=== PATIENT | female | born 2000 | race Caucasian/White ===

== ENCOUNTER → 2022-11-04 | Outpatient (CLI) | payer OTHER, SELFPAY ==
[2022-11-04 11:39] LABS: Hemoglobin A1c 5.2 % (3.8-5.6)
[2022-11-04 13:46] LABS: Estradiol 84.8 pg/mL; Follicle Stimulating Hormone 5.4 mIU/mL; Luteinizing Hormone 8.7 mIU/mL; Prolactin 4.7 ng/mL
[2022-11-04 16:40] LABS: T4 Free Direct 0.95 ng/dL (0.76-1.46)
[2022-11-08 22:06] LABS: Testosterone, % Free 2.98 % (0.50-2.80); Testosterone, Free 0.86 ng/dL (0.10-0.85); Testosterone, Total 29 ng/dL (13-71)
== END | disposition home or self-care (01) ==
LOC: WOBLAB 11:09
PROVIDERS: PCP Family Medicine; Visit Provider Student in an Organized Health Care Education/Training Program
DX: N93.9 Abnormal uterine and vaginal bleeding, unspecified (principal)
CPT/HCPCS: 36415; 82627; 82670; 83001; 83002; 83036; 84146; 84402; 84403; 84439; 84443; 82626

== ENCOUNTER → 2022-11-13 | Outpatient (CLI) | payer OTHER, SELFPAY ==
[2022-11-13 12:54] LABS: hCG Titer Quant., Serum < 1 mIU/mL (1-3)
[2022-11-13 13:22] LABS: Progesterone Level < 0.21 ng/mL (See Comment)
== END | disposition home or self-care (01) ==
LOC: WOBLAB 11:39
PROVIDERS: PCP Family Medicine; Visit Provider Student in an Organized Health Care Education/Training Program
DX: N97.9 Female infertility, unspecified (principal); E28.2 Polycystic ovarian syndrome
CPT/HCPCS: 36415; 84144; 84702

== ENCOUNTER → 2022-12-17 | Outpatient (CLI) | payer OTHER, SELFPAY ==
[2022-12-17 09:47] LABS: Progesterone Level 5.23 ng/mL (See Comment)
== END | disposition home or self-care (01) ==
LOC: WOBLAB 08:42
PROVIDERS: PCP Family Medicine; Visit Provider Student in an Organized Health Care Education/Training Program
DX: E28.2 Polycystic ovarian syndrome (principal); N97.9 Female infertility, unspecified
CPT/HCPCS: 36415; 84144